=== PATIENT | male | born 1960 | race Caucasian/White ===

== ENCOUNTER 2020-10-04 12:05 | Inpatient (IN) | payer BC ==
[~2020-10-04] VITALS: Ht 175.3 cm; Wt 106.6 kg
[2020-10-04 12:13] VITALS: BP 126/71
[2020-10-04] MEDS ORDERED: LISINOPRIL10 MG PO (12:17)
[2020-10-04 13:06] LABS: ABSOLUTE LYMPHOCYTES 0.8 thou/uL (0.8-5.3); ABSOLUTE MONOCYTES 0.3 thou/uL (0.0-1.2); ABSOLUTE NEUTROPHILS 3.9 thou/uL (1.6-8.1); BASOPHILS 0.3 %; EOSINOPHILS 0.8 %; HEMATOCRIT 35.6 % (42.0-52.0); LYMPHOCYTES 16.1 %; MCHC 33.7 g/dL (28.0-37.0); MONOCYTES 5.4 %; MPV 7.6 fl. (7.2-11.1); NUCLEATED RBCS 0 /100WBC; PLATELET COUNT* 267 thou/uL (150-400); POLYS 77.4 %; RBC 3.87 mil/uL (4.50-6.00); RDW-CV 14.1 % (10.5-14.5); WBC 5.1 thou/uL (4.0-11.0)
[2020-10-04 13:11] LABS: CALCIUM 8.1 mg/dL (8.5-10.1); POTASSIUM 4.4 mmol/L (3.5-5.1)
[2020-10-04 13:13] LABS: APTT 29.4 Seconds (25.0-31.3)
[2020-10-04 13:23] LABS: ALBUMIN 2.6 g/dL (3.4-5.0); TOTAL BILIRUBIN 0.6 mg/dL (<0.1-1.0); TOTAL PROTEIN 7.2 g/dL (6.4-8.2)
[2020-10-04 13:24] LABS: BE -2.1 mmol/L (-2 to +3); PCO2 28.8 mmHg (35.0-45.0); PO2 82.6 mmHg (75.0-100.0); pH 7.466 (7.340-7.450)
--- NOTE | 2020-10-04 16:00 | EKG ---
[place] [address] ELECTROCARDIOGRAM REPORT Name: GABINOKISHOREIFTIKHAR Room: [place] [address] ADM [place] .R.#: [id number] Admission: 10/04/20 Attend Phys: Carmenza Paulson Discharge: Date of : 58 Date of Service: 10/04/20 1235 Report #: [id number] THIS REPORT FOR: //name// [facility] ED Test Date: 2020-10-04 Test Time: 12:35:21 Pat Name: IFTIKHAR SHEETS Department: Room: [facility] Gender: M Insurance Account Executive: SHARITA : 1960 Requested By: Chris Samano Order Number: [id number] MD: Ha Zarate Measurements Intervals [place] Rate: 93 P: 39 CT: 144 QRS: 40 QRSD: 89 T: 35 QT: 342 QTc: 426 Interpretive Statements Sinus rhythm Abnormal R-wave progression, early transition No previous ECG available for comparison Electronically Signed On 10-04-2020 16:00:22 [employer] CONTROLS OPERATOR by Ha Zarate [email or web address] <ELECTRONICALLY SIGNED> By: Ha Zarate MD, FACC 10/04/20 1600 1235 1235 Ha Zarate MD, FAC /EPI
[2020-10-04 16:31] VITALS: BP 103/67
--- NOTE | 2020-10-04 19:02 | NUR ---
PT A&OX4 VSS. PT 95-99% ON 3L O2. IV TO R HAND AND LAC PATENT, DRESSING C/D/I. PT UP SBA, R/T SOA. GAIT STEADY. PT UP TO RECLINER AND MEAL SERVED. PT DENIES PAIN, N/V. PT RESTING IN ROOM WITH CALL LIGHT AND PHONE IN REACH. WILL CONTINUE TO MONITOR
[2020-10-04 20:00] VITALS: BP 121/64
[2020-10-05] VITALS: BP 117/63
[2020-10-05 04:30] VITALS: BP 126/78
[2020-10-05 07:30] VITALS: BP 136/74
[2020-10-05 11:16] LABS: ABSOLUTE LYMPHOCYTES 0.6 thou/uL (0.8-5.3); ABSOLUTE MONOCYTES 0.2 thou/uL (0.0-1.2); ABSOLUTE NEUTROPHILS 3.5 thou/uL (1.6-8.1); BASOPHILS 0.3 %; HEMATOCRIT 37.9 % (42.0-52.0); HEMOGLOBIN 12.6 gm/dL (14.0-18.0); MCHC 33.3 g/dL (28.0-37.0); MONOCYTES 4.6 %; MPV 8.4 fl. (7.2-11.1); NUCLEATED RBCS 0 /100WBC; PLATELET COUNT* 331 thou/uL (150-400); POLYS 82.1 %; RBC 4.07 mil/uL (4.50-6.00); RDW-CV 14.1 % (10.5-14.5); WBC 4.3 thou/uL (4.0-11.0)
[2020-10-05 11:35] LABS: ALBUMIN 2.8 g/dL (3.4-5.0); CALCIUM 8.7 mg/dL (8.5-10.1); CREATININE 1.2 mg/dL (0.6-1.3); POTASSIUM 4.6 mmol/L (3.5-5.1); TOTAL BILIRUBIN 0.4 mg/dL (<0.1-1.0); TOTAL PROTEIN 6.5 g/dL (6.4-8.2)
[2020-10-05 13:07] VITALS: BP 135/64
[2020-10-05 16:00] VITALS: BP 155/75
--- NOTE | 2020-10-05 16:00 | NUR ---
DISCUSSED WITH . PT.OUT OF NETWORK FOR HIS INSURANCE WITH NO OON BENEFITS. NEEDS TO TRANSFER TO A [facility]AC[facility]. CONTACTED [facility] [phone] AND FAXED H&P,PROGRESS NOTE AND FACE SHEET TO ELENITA AT [phone]. SHE WILL SENT TO [facility] TAKING COVID POS.PTS. THEY ARE CURRENTLY CLOSED FOR NEW PTS BUT WILL PUT ON WAITING LIST. GAVE ELENITA LINDSAY.SUPERVISORS NUMBER.
--- NOTE | 2020-10-05 17:44 | NUR ---
A&OX 4, PWD. LUNGS CLEAR ON 02 AT 3L PER NC. OCC. TAKES IT OFF TO WALK AROUND IN ROOM THEN SITS BACK DOWN AND PUTS IT BACK ON. 02 SAT WITHOUT O2 ON WAS 92%. HEART TONES REGULAR, +BS X 4 QUADS. PEDAL PULSES PRESENT. NO EDEMA NOTED. SL RIGHT HAND INTACT AND PATENT. UP AD FRAN IN ROOM WITH STEADY GAIT. CALL LIGHT WITHIN REACH. WILL CONTINUE TO MONITOR.
[2020-10-05 22:21] VITALS: BP 130/60
[2020-10-06] VITALS: BP 127/73
[2020-10-06 05:00] VITALS: BP 111/62
--- NOTE | 2020-10-06 05:36 | NUR ---
PT ALERT ORIENTED. UP AD FRAN IN ROOM. O2 AT 3 LITERS NC. TELEMETRY SHOWS SR. PT HAD ONE EPISOID OF DIAPHORESIS. WCTM
[2020-10-06 08:34] VITALS: BP 128/65
--- NOTE | 2020-10-06 09:06 | NUR ---
CM CONTACTED [facility] TE[facility] TO DISCUSS TRANSFER INITITED BY CM YESTERDAY. [facility] INFORMS THAT THE PT HAD BEEN DECLINED YESTERDAY [facility] WAS [facility]. [facility] REMAINS [facility] AND IS UNABLE TO ACCEPT THE PT. [facility] IS THE ONLY [facility] ACCPETING COVID POSITIVE PATIENTS. CM TO INFORM PHYSICIAN AND RN IN-CHARGE OF PT OF THIS INFO. CM WILL REMAIN AVAILABLE TO ASSIST AND FOLLOW NEEDED.
--- NOTE | 2020-10-06 10:24 | NUR ---
ASSUMED CARE OF PT THIS AM AROUND 0715- AUTOMOTIVE ASSEMBLER IN PLACE ORDERED, TRACING SR- UPON ASSESSMENT PT NOTED TO BE RESTING IN BED SIDE RECLINER- PT A&O X4- CONT OF B/B- UP AD-FRAN IN ROOM, STEADY GAIT NOTED- DINIMISHED LUNG SOUNDS NOTED, RESP EVEN AND PO-HEVUTUI-ADQZNDDI PRODUCTIVE COUGH- VSS, O2 SAT 92% ON RA- ABD SOFT/ROUND/NON-TENDER, BS X4 QUADS- LAST BM REPORTED THIS AM-GOOD PO INTAKE NOTED THIS AM WITH BREAKFAST- IV NOTED TO LEFT AC AND RIGHT HAND INTACT AND SL- IV ABT GIVEN THIS AM PRESCRIBED- TRACE EDEMA NOTED TO BLE-ISOLATION IN PLACE INDICATED R/T COVID- PT DENIES ANY C/O PAIN/DISCOMFORT AT THIS TIME- PT MAKES NEEDS KNOWN- ALL NEEDS MET AT THIS TIME-WCTM
[2020-10-06 14:10] LABS: HEMATOCRIT 35.8 % (42.0-52.0); HEMOGLOBIN 11.8 gm/dL (14.0-18.0); MCH 30.8 pg (26.0-34.0); MCHC 32.9 g/dL (28.0-37.0); MCV 93.8 fL (80.0-100.0); MPV 8.5 fl. (7.2-11.1); NUCLEATED RBCS 0 /100WBC; PLATELET COUNT* 363 thou/uL (150-400); RBC 3.81 mil/uL (4.50-6.00); RDW-CV 14.2 % (10.5-14.5); WBC 10.1 thou/uL (4.0-11.0)
[2020-10-06 14:15] LABS: ALBUMIN 2.8 g/dL (3.4-5.0); CALCIUM 8.7 mg/dL (8.5-10.1); CREATININE 1.1 mg/dL (0.6-1.3); POTASSIUM 5.2 mmol/L (3.5-5.1); TOTAL BILIRUBIN 0.4 mg/dL (<0.1-1.0); TOTAL PROTEIN 6.3 g/dL (6.4-8.2)
[2020-10-06 14:56] LABS: ABSOLUTE LYMPHOCYTES 0.3 thou/uL (0.8-5.3); ABSOLUTE MONOCYTES 0.6 thou/uL (0.0-1.2); ABSOLUTE NEUTROPHILS 9.2 thou/uL (1.6-8.1)
[2020-10-06 14:57] LABS: PLATELET ESTIMATE ADEQUATE
[2020-10-06 14:59] VITALS: BP 125/72
[2020-10-06] MEDS ORDERED: PEPCID20 MG PO (15:07)
[2020-10-06] MEDS ORDERED: VITAMIN C1000 MG PO (15:07)
[2020-10-06] MEDS ORDERED: FISH OIL 1,001000 M2 PO (15:08)
[2020-10-06] MEDS ORDERED: CEFDINIR300 MG PO (15:24)
[2020-10-06] MEDS ORDERED: AZITHROMYCIN500 MG PO (15:24)
[2020-10-06 16:59] VITALS: BP 125/72
[2020-10-06 17:35] VITALS: BP 125/72
== END 2020-10-06 17:30 | disposition home or self-care (01) | DRG 193 ==
LOC: M.ERS 12:05 → M.TBA-ER 14:32 → M.ORTHSURG 14:32
PROVIDERS: Family Medicine; ADMIT Internal Medicine; ATTEND Internal Medicine
DX: J18.9 Pneumonia, unspecified organism (principal); J96.01 Acute respiratory failure with hypoxia; E78.5 Hyperlipidemia, unspecified; Z20.828 Contact with and (suspected) exposure to other viral communicable diseases; I10 Essential (primary) hypertension; Z88.1 Allergy status to other antibiotic agents; Z88.8 Allergy status to other drugs, medicaments and biological substances